=== PATIENT | male | born 1980 | race Caucasian/White ===

== ENCOUNTER 2021-10-01 09:34 | Emergency (ER) | payer BC, OTHER ==
--- OUTSIDE RECORDS SUMMARY | 2021-10-01 09:37 | XMS REPORT | Continuity of Care Document ---
:1980 Author Organization [facility] t Address [address] [place] [address] Care Team Providers Name Role Phone Unavailable Unavailable Unavailable Problems This patient has no known problems. Allergies, Adverse Reactions, Alerts This patient has no known allergies or adverse reactions. Medications This patient has no known medications. Procedures This patient has no known procedures. Encounters Start End Encounter Admission Attending Care Care Encounter Source Date/Time Date/Time Type Type Clinicians Facility Department ID 2021-01-10 2021-01-10 Outpatient [facility] [id number] [facility] 2020-11-29 2020-11-29 Outpatient [facility] [id number] [facility] 2020-08-30 2020-08-30 Outpatient [facility] [id number] [facility] Results This patient has no known results.
[2021-10-01] MEDS ORDERED: predniSONE 20 MG TAB ONE (09:50)
[2021-10-01] MEDS ORDERED: HYDROCODONE/APAP 10/325 TAB ONE (09:51)
--- NOTE | 2021-10-01 09:52 | ER ---
Nurse's Notes [facility] Name: Honorio Henry Age: 40 yrs Sex: Male : 1980 Arrival Date: 10/01/2021 Time: 09:35 Bed 11 Private MD: Diagnosis: Sciatica, left side Presentation: 10/01 09:42 Chief complaint: Patient states: hx of herniated disc and is having low back pain on iw left side , pain started yesterday after picking up his nephew, pain radiates down left leg. Coronavirus screen: At this time, the client does not indicate any symptoms associated with coronavirus-19. Ebola Screen: Patient negative for fever greater than or equal to 101.5 degrees Fahrenheit, and additional compatible Ebola Virus Disease symptoms Patient denies exposure to infectious person. Patient denies travel to an Ebola-affected area in the 21 days before illness onset. No symptoms or risks identified at this time. Initial Sepsis Screen: Does the patient meet any 2 criteria? No. Patient's initial sepsis screen is negative. Does the patient have a suspected source of infection? No. Patient's initial sepsis screen is negative. Risk Assessment: Do you want to hurt yourself or someone else? Patient reports no desire to harm self or others. Onset of symptoms. 09:42 Method Of Arrival: Wheelchair iw 09:42 Acuity: DYLAN 4 iw Historical: - Allergies: 09:44 No Known Allergies; iw - Immunization history:: Adult Immunizations. - Social history:: Smoking status: . Screenin:46 Abuse screen: Denies threats or abuse. Denies injuries from another. Nutritional iw screening: No deficits noted. Tuberculosis screening: No symptoms or risk factors identified. Fall Risk None identified. Assessment: 09:45 General: Appears in no apparent distress. Behavior is calm, cooperative. Pain: iw Complains of pain in sacrum Pain radiates to left leg. Neuro: Level of Consciousness is awake, alert, obeys commands, Oriented to person, place, time, situation, Moves all extremities. Cardiovascular: Patient's skin is warm and dry. Respiratory: Respiratory effort is even, unlabored, Respiratory pattern is regular, symmetrical. Derm: Skin is intact, is healthy with good turgor. Musculoskeletal: Range of motion: intact in all extremities, Reports pain in back and left leg. 10:13 Reassessment: Patient appears in no apparent distress at this time. No changes from tw2 previously documented assessment. Patient and/or family updated on plan of care and expected duration. Pain level reassessed. Patient is alert, oriented x 3, equal unlabored respirations, skin warm/dry/pink. Vital Signs: 09:44 BP 163 / 86; Pulse 87; Resp 16; Temp 97.3; Pulse Ox 99% ; iw ED Course: 09:35 Patient arrived in ED. am2 09:37 Carmen Causey FNP-C is PHCP. kb 09:37 Charles Holman MD is Attending Physician. kb 09:43 Triage completed. iw 09:45 Sita Mesa, RN is Primary Nurse. iw 09:46 Call light in reach. tw2 10:13 No provider procedures requiring assistance completed. Patient did not have IV access tw2 during this emergency room visit. 10:13 Arm band placed on. tw2 Administered Medications: 09:53 Drug: predniSONE 60 mg Route: PO; iw 10:00 Follow up: Response: No adverse reaction tw2 09:53 Drug: [place] (HYDROcodone-acetaminophen) 10 mg-325 mg 1 tabs Route: PO; iw 10:10 Follow up: Response: No adverse reaction; Pain is decreased; RASS: Alert and Calm (0) tw2 Outcome: 09:52 Discharge ordered by MD. kb 10:13 Discharged to home via wheelchair. tw2 10:13 Condition: stable 10:13 Discharge instructions given to patient, Instructed on discharge instructions, follow up and referral plans. no drinking with medication, no driving heavy equipment, medication usage, Demonstrated understanding of instructions, follow-up care, medications, Prescriptions given X 3. 10:14 Patient left the ED. tw2 Signatures: Carmen Causey FNP-C FNP-Sita Crowley RN ORALIA iw Renata Francis RN RN tw2 Elina Cha am2 Corrections: (The following items were deleted from the chart) 09:46 09:42 Acuity: DYLAN 3 iw iw
--- NOTE | 2021-10-01 09:52 | EDPHYS ---
Physician Documentation [facility] Name: Honorio Henry Age: 40 yrs Sex: Male : 1980 Arrival Date: 10/01/2021 Time: 09:35 Bed 11 Private MD: [place] Physician Charles Holman HPI: 10/01 09:49 This 40 yrs old Male presents to ER via Wheelchair with complaints of Back Pain - kb herniated disc pain. 09:49 The symptoms are located in the low back. Onset: The symptoms/episode began/occurred kb yesterday. The pain radiates to the left leg. Associated signs and symptoms: The patient has no apparent associated signs or symptoms. The problem was sustained when lifting. Modifying factors: The patient symptoms are alleviated by nothing, the patient symptoms are aggravated by any movement. Severity of symptoms: At their worst the symptoms were moderate, in the emergency department the symptoms are unchanged. The patient has not experienced similar symptoms in the past. The patient has not recently seen a physician. Pt states he has a herniated disc in lower back that he did PT for. States it hasn't bothered him in a long time, but yesterday he picked up his 8 year old nephew to give him a hug and started having pain. Pt to lower left back/upper left buttock that started yesterday. . Historical: - Allergies: 09:44 No Known Allergies; iw - Immunization history:: Adult Immunizations. - Social history:: Smoking status: . ROS: 09:47 Constitutional: Negative for fever, chills, and weight loss. kb 09:47 Back: Positive for pain at rest, pain with movement, radiated pain, of the left low back. 09:47 All other systems are negative. Exam: 09:47 Constitutional: This is a well developed, well nourished patient who is awake, alert, kb and in no acute distress. Head/Face: Normocephalic, atraumatic. ENT: Moist Mucous membranes Respiratory: Respirations even and unlabored. No increased work of breathing. Talking in full sentences Skin: Warm, dry with normal turgor. Normal color. MS/ Extremity: Pulses equal, no cyanosis. Neurovascular intact. Full, normal range of motion. Neuro: Awake and alert, GCS 15, oriented to person, place, time, and situation. Moves all extremities. Normal gait. Psych: Awake, alert, with orientation to person, place and time. Behavior, mood, and affect are within normal limits. 09:47 Back: pain, that is mild, ROM is painful, normal spinal alignment noted. Vital Signs: 09:44 BP 163 / 86; Pulse 87; Resp 16; Temp 97.3; Pulse Ox 99% ; iw MDM: 09:46 Patient medically screened. kb 09:47 Data reviewed: vital signs, nurses notes. Data interpreted: Pulse oximetry: on room air kb is 99 %. Interpretation: normal. Counseling: I had a detailed discussion with the patient and/or guardian regarding: the historical points, exam findings, and any diagnostic results supporting the discharge/admit diagnosis, the need for outpatient follow up, a family practitioner, to return to the emergency department if symptoms worsen or persist or if there are any questions or concerns that arise at home. Administered Medications: 09:53 Drug: predniSONE 60 mg Route: PO; iw 10:00 Follow up: Response: No adverse reaction tw2 09:53 Drug: [place] (HYDROcodone-acetaminophen) 10 mg-325 mg 1 tabs Route: PO; iw 10:10 Follow up: Response: No adverse reaction; Pain is decreased; RASS: Alert and Calm (0) tw2 Disposition: 10/02 06:52 Co-signature as Attending Physician, Charles Holman MD I agree with the assessment and eileen plan of care. Disposition Summary: 10/01/21 09:52 Discharge Ordered Location: Home kb Condition: Stable kb Diagnosis - Sciatica, left side kb Followup: kb - With: Emergency Department - When: As needed - Reason: Worsening of condition Followup: kb - With: Private Physician - When: 2 - 3 days - Reason: Recheck today's complaints, Continuance of care, Re-evaluation by your physician Discharge Instructions: - Discharge Summary Sheet kb - Sciatica, [id number] kb Forms: - Medication Reconciliation Form kb - Thank You Letter kb - Antibiotic Education kb - Prescription Opioid Use kb - Work release form iw Prescriptions: - Prednisone 20 mg Oral Tablet - take 1 tablet by ORAL route once daily for 5 days; 5 tablet; Refills: 0, kb Product Selection Permitted - Cyclobenzaprine 10 mg Oral Tablet - take 1 tablet by ORAL route every 8 hours As needed; 21 tablet; Refills: 0, kb Product Selection Permitted - Diclofenac Sodium 75 mg Oral tablet,delayed release (DR/EC) - take 1 tablet by ORAL route 2 times per day As needed; 30 tablet; Refills: 0, kb Product Selection Permitted Signatures: Carmen Causey, ALVINAC MACY-Charles Payan MD MD cha Williams, Irene, RN RN iw Renata Francis RN RN tw2
[2021-10-01 10:19] VITALS: BP 163/86; TEMP 97.3; O2SAT 99
== END 2021-10-01 10:14 | disposition home or self-care (01) ==
LOC: ER 09:34
DX: M54.32 Sciatica, left side (principal)
CPT/HCPCS: 99283; J7512